=== PATIENT | female | born 1995 | race African-American/Black ===

== ENCOUNTER 2018-10-31 09:26 | Emergency (ER) | payer BC, SELFPAY ==
--- OUTSIDE RECORDS SUMMARY | 2018-10-31 09:28 | XMS REPORT ---
:1995 [facility] Address [address] [place] [address] Care Team Providers Name Role Phone Unavailable Unavailable Unavailable Problems This patient has no known problems. Allergies, Adverse Reactions, Alerts This patient has no known allergies or adverse reactions. Medications This patient has no known medications.
[2018-10-31] MEDS ORDERED: IBUPROFEN 400 MG TAB ONE (11:40)
[2018-10-31] MEDS ORDERED: IBUPROFEN 200 MG TAB PO ONE (11:41)
[2018-10-31 11:52] LABS: Urine Blood NEGATIVE (NEG); Urine Glucose NEGATIVE (NEG); Urine Protein NEGATIVE (NEG); Urine Specific Gravity 1.025 (1.005-1.030)
--- NOTE | 2018-10-31 11:57 | ER ---
Nurse's Notes [facility] Name: Leslye Reardon Age: 23 yrs Sex: Female : 1995 Arrival Date: 10/31/2018 Time: 09:30 Bed 24 Private MD: None, None Diagnosis: Headache;Insomnia Presentation: 10/31 09:43 Presenting complaint: Patient states: migraine since beginning of month, has been under iw a lot of stress, not sleeping well, c/p pain to alexander catholic, pain, also c/o nausea. Transition of care: patient was not received from another setting of care. Onset of symptoms was October 07, 2018. Risk Assessment: Do you want to hurt yourself or someone else? Patient reports no desire to harm self or others. Initial Sepsis Screen: Does the patient meet any 2 criteria? No. Patient's initial sepsis screen is negative. Does the patient have a suspected source of infection? No. Patient's initial sepsis screen is negative. Care prior to arrival: None. 09:43 Method Of Arrival: Ambulatory iw 09:43 Acuity: ELO 3 iw Triage Assessment: 09:55 General: Appears in no apparent distress. Behavior is calm, cooperative. Pain: Pain ls4 currently is 5 out of 10 on a pain scale. Pain began one month Also complains of no other associated symptoms. Neuro: No deficits noted. Cardiovascular: No deficits noted. Respiratory: No deficits noted. Musculoskeletal: No deficits noted. 10:10 Headache History: The patient has had previous headaches and this one is similar to ls4 previous episodes. 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 - Social history:: Smoking status: Patient uses tobacco products, 1 pack every 3 days. - Ebola Screening: : Patient negative for fever greater than or equal to 101.5 degrees Fahrenheit, and additional compatible Ebola Virus Disease symptoms Patient denies exposure to infectious person Patient denies travel to an Ebola-affected area in the 21 days before illness onset No symptoms or risks identified at this time. - Family history:: not pertinent. Screenin:56 Abuse screen: Denies threats or abuse. Denies injuries from another. Nutritional ls4 screening: No deficits noted. Tuberculosis screening: No symptoms or risk factors identified. Fall Risk None identified. Vital Signs: 09:46 BP 112 / 75; Pulse 90; Resp 16 S; Temp 97.4(O); Pulse Ox 99% on R/A; Weight 104.33 kg; iw Height 5 ft. 4 in. (162.56 cm); Pain 5/10; 11:31 BP 110 / 74; Pulse 88; Resp 14; Pulse Ox 98% ; Pain 3/10; ls4 09:46 Body Mass Index 39.48 (104.33 kg, 162.56 cm) iw ED Course: 09:30 Patient arrived in ED. mr 09:31 None, None is Private Physician. mr 09:45 Triage completed. iw 09:46 Arm band placed on. iw 09:54 Donna Mancera, RN is Primary Nurse. ls4 09:57 Patient has correct armband on for positive identification. Bed in low position. Call ls4 light in reach. Side rails up X 1. 10:00 Cooper Davis MD is Attending Physician. comfort 11:56 Oumar Thomas MD is Referral Physician. comfort 12:17 No provider procedures requiring assistance completed. Patient did not have IV access ls4 during this emergency room visit. Administered Medications: 11:25 Drug: Motrin 600 mg Route: PO; ls4 12:16 Follow up: Response: No adverse reaction ls4 Outcome: 11:56 Discharge ordered by . comfort 12:17 Discharged to home ambulatory. ls4 12:17 Condition: stable 12:17 Discharge instructions given to patient, Instructed on discharge instructions, follow up and referral plans. medication usage, Demonstrated understanding of instructions, follow-up care, medications. 12:20 Patient left the ED. ls4 Signatures: Cooper Davis MD MD cha Rivera, Mary mr Williams, Irene, NEY BREWSTER iw Donna Mancera RN RN ls4
--- NOTE | 2018-10-31 11:57 | EDPHYS ---
Physician Documentation [facility] Name: Leslye Reardno Age: 23 yrs Sex: Female : 1995 Arrival Date: 10/31/2018 Time: 09:30 Bed 24 Private MD: None, None ED Physician Cooper Davis HPI: 10/31 11:23 This 23 yrs old Black Female presents to ER via Ambulatory with complaints of Headache. comfort 11:23 The patient complains of pain to the forehead, right episcopal, left episcopal, left temporal comfort area and right temporal area. The patient describes the headache as aching. Onset: The symptoms/episode began/occurred 7 day(s) ago. Associated signs and symptoms: The patient has no apparent associated signs or symptoms. Severity of symptoms: At its worst the pain was mild, moderate, in the emergency department the pain is unchanged. Headache History: The patient has had previous headaches and this one is similar to previous episodes. The symptoms are alleviated by quiet, remaining still, the symptoms are aggravated by lights, movement, stress. The patient has experienced similar episodes in the past, several times. 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 - Social history:: Smoking status: Patient uses tobacco products, 1 pack every 3 days. - Ebola Screening: : Patient negative for fever greater than or equal to 101.5 degrees Fahrenheit, and additional compatible Ebola Virus Disease symptoms Patient denies exposure to infectious person Patient denies travel to an Ebola-affected area in the 21 days before illness onset No symptoms or risks identified at this time. - Family history:: not pertinent. ROS: 11:23 Constitutional: Negative for fever, chills, and weight loss, Eyes: Negative for injury, comfort pain, redness, and discharge, ENT: Negative for injury, pain, and discharge, Neck: Negative for injury, pain, and swelling, Cardiovascular: Negative for chest pain, palpitations, and edema, Respiratory: Negative for shortness of breath, cough, wheezing, and pleuritic chest pain, Abdomen/GI: Negative for abdominal pain, nausea, vomiting, diarrhea, and constipation, Back: Negative for injury and pain, : Negative for injury, bleeding, discharge, and swelling, MS/Extremity: Negative for injury and deformity, Skin: Negative for injury, rash, and discoloration, Psych: Negative for depression, anxiety, suicide ideation, homicidal ideation, and hallucinations, Allergy/Immunology: Negative for hives, rash, and allergies, Endocrine: Negative for neck swelling, polydipsia, polyuria, polyphagia, and marked weight changes, Hematologic/Lymphatic: Negative for swollen nodes, abnormal bleeding, and unusual bruising. 11:23 Neuro: Positive for headache. Exam: 11:23 Constitutional: This is a well developed, well nourished patient who is awake, alert, comfort and in no acute distress. Head/Face: Normocephalic, atraumatic. Eyes: Pupils equal round and reactive to light, extra-ocular motions intact. Lids and lashes normal. Conjunctiva and sclera are non-icteric and not injected. Cornea within normal limits. Periorbital areas with no swelling, redness, or edema. ENT: Nares patent. No nasal discharge, no septal abnormalities noted. Tympanic membranes are normal and external auditory canals are clear. Oropharynx with no redness, swelling, or masses, exudates, or evidence of obstruction, uvula midline. Mucous membranes moist. Neck: Trachea midline, no thyromegaly or masses palpated, and no cervical lymphadenopathy. Supple, full range of motion without nuchal rigidity, or vertebral point tenderness. No Meningismus. Chest/axilla: Normal chest wall appearance and motion. Nontender with no deformity. No lesions are appreciated. Cardiovascular: Regular rate and rhythm with a normal S1 and S2. No gallops, murmurs, or rubs. Normal PMI, no JVD. No pulse deficits. Respiratory: Lungs have equal breath sounds bilaterally, clear to auscultation and percussion. No rales, rhonchi or wheezes noted. No increased work of breathing, no retractions or nasal flaring. Abdomen/GI: Soft, non-tender, with normal bowel sounds. No distension or tympany. No guarding or rebound. No evidence of tenderness throughout. Back: No spinal tenderness. No costovertebral tenderness. Full range of motion. Female : Normal external genitalia. Skin: Warm, dry with normal turgor. Normal color with no rashes, no lesions, and no evidence of cellulitis. MS/ Extremity: Pulses equal, no cyanosis. Neurovascular intact. Full, normal range of motion. Neuro: Awake and alert, GCS 15, oriented to person, place, time, and situation. Cranial nerves II-XII grossly intact. Motor strength 5/5 in all extremities. Sensory grossly intact. Cerebellar exam normal. Normal gait. Psych: Awake, alert, with orientation to person, place and time. Behavior, mood, and affect are within normal limits. 11:56 Neck: ROM/movement: is normal, no acute changes, Meningeal signs: are not present, [facility] Kernig's sign is negative, Brudzinski's sign is negative. Vital Signs: 09:46 BP 112 / 75; Pulse 90; Resp 16 S; Temp 97.4(O); Pulse Ox 99% on R/A; Weight 104.33 kg; iw Height 5 ft. 4 in. (162.56 cm); Pain 5/10; 11:31 BP 110 / 74; Pulse 88; Resp 14; Pulse Ox 98% ; Pain 3/10; ls4 09:46 Body Mass Index 39.48 (104.33 kg, 162.56 cm) iw MDM: 10:00 Patient medically screened. [facility] 11:56 Data reviewed: vital signs, nurses notes, lab test result(s). [facility] 10/31 11:23 Order name: Urine Culture [facility] 10/31 11:49 Order name: Urine Dipstick--Ancillary (enter results); Complete Time: 11:56 10/31 11:23 Order name: Urine Dipstick-Ancillary (obtain specimen); Complete Time: 11:42 [facility] 10/31 11:23 Order name: Urine Test (obtain specimen); Complete Time: 11:42 [facility] 10/31 11:49 Order name: Urine --Ancillary (enter results); Complete Time: 11:56 Administered Medications: 11:25 Drug: Motrin 600 mg Route: PO; ls4 12:16 Follow up: Response: No adverse reaction ls4 Disposition: 10/31/18 11:56 Discharged to Home. Impression: Headache, Insomnia. - Condition is Stable. - Discharge Instructions: General Headache Without Cause, Insomnia, General Headache Without Cause, [id number]. - Prescriptions for Fioricet with Codeine 50- 325-40-30 mg Oral capsule - take 1 capsule by ORAL route every 4 hours as needed not to exceed 6 capsules per 24hrs; 24 capsule. Restoril 7.5 mg Oral Capsule - take 2 capsule by ORAL route At bedtime As needed; 14 capsule. - Medication Reconciliation Form, Thank You Letter, Antibiotic Education, Prescription Opioid Use, Work release form form. - Follow up: Private Physician; When: 2 - 3 days; Reason: Recheck today's complaints, Continuance of care, Re-evaluation by your physician. Follow up: Oumar Thomas; When: 2 - 3 days; Reason: Recheck today's complaints, Continuance of care, Re-evaluation by your physician. - Problem is new. - Symptoms have improved. Signatures: Dispatcher [employer] EDCooper Llanes MD MD cha Williams, Irene, RN RN iw Stewart, Lisa, RN RN ls4 Corrections: (The following items were deleted from the chart) 12:20 11:56 10/31/2018 11:56 Discharged to Home. Impression: Headache; Insomnia. Condition is ls4 Stable. Discharge Instructions: General Headache Without Cause, Insomnia, General Headache Without Cause, [id number]. Prescriptions for Fioricet with Codeine 60-156-08-30 mg Oral capsule - take 1 capsule by ORAL route every 4 hours as needed not to exceed 6 capsules per 24hrs; 24 capsule, Restoril 7.5 mg Oral Capsule - take 2 capsule by ORAL route At bedtime As needed; 14 capsule. and Forms are Medication Reconciliation Form, Thank You Letter, Antibiotic Education, Prescription Opioid Use. Follow up: Private Physician; When: 2 - 3 days; Reason: Recheck today's complaints, Continuance of care, Re-evaluation by your physician. Follow up: Oumar Thomas; When: 2 - 3 days; Reason: Recheck today's complaints, Continuance of care, Re-evaluation by your physician. Problem is new. Symptoms have improved. comfort
== END 2018-10-31 12:20 | disposition home or self-care (01) ==
LOC: ER 09:26
DX: R51 Headache (principal); G47.00 Insomnia, unspecified; Z88.0 Allergy status to penicillin; Z72.0 Tobacco use
CPT/HCPCS: 81003; 81025; 87086; 87088; 99283

== ENCOUNTER 2018-11-21 23:11 | Emergency (ER) | payer BC ==
--- OUTSIDE RECORDS SUMMARY | 2018-11-21 23:14 | XMS REPORT ---
:1995 [facility] Address [address] [place] [address] Care Team Providers Name Role Phone Unavailable Unavailable Unavailable Problems This patient has no known problems. Allergies, Adverse Reactions, Alerts This patient has no known allergies or adverse reactions. Medications This patient has no known medications.
[2018-11-22] MEDS ORDERED: KETOROLAC 30 MG/ML INJ ONE (01:48)
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
--- NOTE | 2018-11-22 08:37 | RAD REPORT ---
EXAM DESCRIPTION: RAD - Foot Left 3 View - 11/22/2018 12:33 am CLINICAL HISTORY: Left Foot pain status post injury FINDINGS: No fracture or dislocation is seen.
== END 2018-11-22 03:02 | disposition home or self-care (01) ==
LOC: ER 23:11
PROC: 2W3RX1Z Immobilization of Left Lower Leg using Splint (ICD-10-PCS; principal; 2018-11-21)
DX: S93.602A Unspecified sprain of left foot, initial encounter (principal); Y04.0XXA Assault by unarmed brawl or fight, initial encounter; Y92.149 Unspecified place in prison as the place of occurrence of the external cause; Z88.0 Allergy status to penicillin; F17.210 Nicotine dependence, cigarettes, uncomplicated
CPT/HCPCS: 96372; 99284

== ENCOUNTER 2019-01-29 10:48 | Emergency (ER) | payer BC, OTHER ==
--- OUTSIDE RECORDS SUMMARY | 2019-01-29 10:50 | XMS REPORT ---
:1995 [facility] [address] [place] [address] Care Team Providers Name Role Phone Unavailable Unavailable Unavailable Problems This patient has no known problems. Allergies, Adverse Reactions, Alerts This patient has no known allergies or adverse reactions. Medications This patient has no known medications.
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
[2019-01-29] MEDS ORDERED: HYDROCODONE/APAP 7.5/325 MG TAB ONE (12:19)
--- NOTE | 2019-01-29 13:31 | RAD REPORT ---
EXAM DESCRIPTION: RAD - Ankle Left 3 View - 01/29/2019 11:39 am CLINICAL HISTORY: Trip and fall, ankle pain COMPARISON: None. FINDINGS: No fracture, dislocation or periosteal reaction. No joint effusion seen. No joint space na rrowing. No soft tissue abnormality. IMPRESSION: Negative left ankle for fracture or other acute finding.
== END 2019-01-29 12:19 | disposition home or self-care (01) ==
LOC: ER 10:48
DX: S93.402A Sprain of unspecified ligament of left ankle, initial encounter (principal); S80.01XA Contusion of right knee, initial encounter; W19.XXXA Unspecified fall, initial encounter; Y93.89 Activity, other specified; Y92.9 Unspecified place or not applicable; Z88.0 Allergy status to penicillin; F17.210 Nicotine dependence, cigarettes, uncomplicated
CPT/HCPCS: 99283

== ENCOUNTER 2019-02-28 20:44 | Emergency (ER) | payer BC ==
--- OUTSIDE RECORDS SUMMARY | 2019-02-28 20:46 | XMS REPORT ---
:1995 [facility] Address [address] [place] [address] Care Team Providers Name Role Phone Unavailable Unavailable Unavailable Problems This patient has no known problems. Allergies, Adverse Reactions, Alerts This patient has no known allergies or adverse reactions. Medications This patient has no known medications.
[2019-02-28 23:05] LABS: Urine Blood NEGATIVE (NEG); Urine Glucose NEGATIVE (NEG); Urine Protein 1+ (NEG); Urine pH 7.5 (5.0-7.0)
[2019-03-01 00:02] LABS: Urine Bacteria LOADED /HPF (<20); Urine Culture Reflex Order REFLEXED; Urine RBC NONE SEEN /HPF (NONE SEEN)
--- NOTE | 2019-03-01 01:05 | ER ---
Nurse's Notes [facility] Name: Leslye Reardon Age: 23 yrs Sex: Female : 1995 Arrival Date: 02/28/2019 Time: 20:48 Bed 6 Private MD: Diagnosis: Constipation;Urinary tract infection, site not specified Presentation: 02/28 20:55 Presenting complaint: Patient states: LLQ pain for 2 days. Transition of care: patient aj was not received from another setting of care. Onset of symptoms was February 26, 2019. Risk Assessment: Do you want to hurt yourself or someone else? Patient reports no desire to harm self or others. Initial Sepsis Screen: Does the patient meet any 2 criteria? No. Patient's initial sepsis screen is negative. Does the patient have a suspected source of infection? No. Patient's initial sepsis screen is negative. Care prior to arrival: None. 20:55 Method Of Arrival: Ambulatory aj 20:55 Acuity: ELO 3 aj Triage Assessment: 20:56 General: Appears in no apparent distress. comfortable, Behavior is calm, cooperative, aj appropriate for age. Pain: Complains of pain in left inguinal area. Neuro: Level of Consciousness is awake, alert, obeys commands, Oriented to person, place, time, situation, Appropriate for age. Respiratory: Airway is patent Respiratory effort is even, unlabored, Respiratory pattern is regular, symmetrical. : Reports pain in left lower quadrant(s). Derm: Skin is intact, is healthy with good turgor, Skin is pink, warm \T\ dry. normal. 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 - Social history:: Smoking status: Patient/guardian denies using tobacco. - Ebola Screening: : Patient negative for fever greater than or equal to 101.5 degrees Fahrenheit, and additional compatible Ebola Virus Disease symptoms Patient denies exposure to infectious person Patient denies travel to an Ebola-affected area in the 21 days before illness onset No symptoms or risks identified at this time. Screenin:57 Abuse screen: Denies threats or abuse. Denies injuries from another. Nutritional lp1 screening: No deficits noted. Tuberculosis screening: No symptoms or risk factors identified. Fall Risk None identified. Assessment: 22:30 General: Appears in no apparent distress. Behavior is calm, cooperative. Pain: lp1 Complains of pain in left lower quadrant. Neuro: Level of Consciousness is awake, alert, obeys commands. Cardiovascular: Patient's skin is warm and dry. Respiratory: Respiratory effort is even, unlabored. GI: Abdomen is non-distended, Reports constipation, for 3 days, hx of constipation, states taking stool softeners. : Denies burning with urination. EENT: No signs and/or symptoms were reported regarding the EENT system. Derm: Skin is intact, Skin is dry, Skin is normal. Musculoskeletal: Circulation, motion, and sensation intact. 23:30 Reassessment: Patient appears in no apparent distress at this time. No changes from lp1 previously documented assessment. Patient and/or family updated on plan of care and expected duration. Pain level reassessed. Waiting for imaging results. Vital Signs: 20:56 BP 126 / 55; Pulse 98; Resp 18; Temp 97.2; Pulse Ox 100% on R/A; Weight 107.05 kg; aj Height 5 ft. 4 in. (162.56 cm); 03/01 00:20 BP 130 / 73; Pulse 65; Resp 16; Pulse Ox 98% on R/A; lp1 02/28 20:56 Body Mass Index 40.51 (107.05 kg, 162.56 cm) aj ED Course: 02/28 20:48 Patient arrived in ED. ag3 20:56 Triage completed. aj 20:56 Arm band placed on left wrist. Patient placed in waiting room, Patient notified of wait aj time. 21:51 Denton Bethea MD is Attending Physician. tw4 22:19 Joi Groves, RN is Primary Nurse. lp1 22:57 Patient has correct armband on for positive identification. Placed in gown. lp1 03/01 00:20 No provider procedures requiring assistance completed. Patient did not have IV access lp1 during this emergency room visit. 00:27 X-ray completed. Patient tolerated procedure well. kw 00:36 Abdomen 1 View (KUB) XRAY In Process Unspecified. EDMS Administered Medications: 01:01 Drug: Lactulose 20 grams Volume: 30 ml; Route: PO; lp1 01:11 Follow up: Response: Medication administered at discharge. lp1 Outcome: 01:03 Discharge ordered by . tw4 01:11 Discharged to home ambulatory. lp1 01:11 Condition: good 01:11 Discharge instructions given to patient, Instructed on discharge instructions, follow up and referral plans. medication usage, Demonstrated understanding of instructions, follow-up care, medications. 01:33 Prescriptions given X 2. lp1 01:33 Patient left the ED. lp1 Signatures: Dispatcher [employer] EDChaparrita Desir RN Megan Ferreira Laura, RN RN lp1 Denton Bethea MD MD tw4 Negar Yeung ag3 Corrections: (The following items were deleted from the chart) 01:33 01:11 Discharge instructions given to patient, Instructed on discharge instructions, lp1 follow up and referral plans. medication usage, Demonstrated understanding of instructions, follow-up care, medications, Prescriptions given X 1, lp1
--- NOTE | 2019-03-01 01:05 | EDPHYS ---
Physician Documentation [facility] Cosmo Name: Leslye Reardon Age: 23 yrs Sex: Female : 1995 Arrival Date: 02/28/2019 Time: 20:48 Bed 6 Private MD: ED Physician Denton Bethea HPI: 03/01 05:30 This 23 yrs old Black Female presents to ER via Ambulatory with complaints of Abdominal tw4 Pain. 05:30 The patient presents with pain that is chronic. The symptoms are located in the low tw4 back. Onset: The symptoms/episode began/occurred 3 day(s) ago. The pain does not radiate. Associated signs and symptoms: The patient has no apparent associated signs or symptoms. Severity of symptoms: At their worst the symptoms were mild, in the emergency department the symptoms are unchanged. 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 - Social history:: Smoking status: Patient/guardian denies using tobacco. - Ebola Screening: : Patient negative for fever greater than or equal to 101.5 degrees Fahrenheit, and additional compatible Ebola Virus Disease symptoms Patient denies exposure to infectious person Patient denies travel to an Ebola-affected area in the 21 days before illness onset No symptoms or risks identified at this time. ROS: 03/01 05:30 Constitutional: Negative for fever, chills, and weight loss, Eyes: Negative for injury, tw4 pain, redness, and discharge, Cardiovascular: Negative for chest pain, palpitations, and edema, Respiratory: Negative for shortness of breath, cough, wheezing, and pleuritic chest pain. Skin: Negative for injury, rash, and discoloration, Neuro: Negative for headache, weakness, numbness, tingling, and seizure. Abdomen/GI: Positive for abdominal pain, constipation, abdominal cramps, Negative for nausea and vomiting, nausea, vomiting, and diarrhea, nausea, anorexia, dysphagia, hematemesis, black/tarry stool, rectal pain, rectal bleeding, bowel incontinence. Exam: 05:30 Constitutional: This is a well developed, well nourished patient who is awake, alert, tw4 and in no acute distress. Head/Face: Normocephalic, atraumatic. Chest/axilla: Normal chest wall appearance and motion. Nontender with no deformity. No lesions are appreciated. Cardiovascular: Regular rate and rhythm with a normal S1 and S2. No gallops, murmurs, or rubs. Normal PMI, no JVD. No pulse deficits. Respiratory: Lungs have equal breath sounds bilaterally, clear to auscultation and percussion. No rales, rhonchi or wheezes noted. No increased work of breathing, no retractions or nasal flaring. MS/ Extremity: Pulses equal, no cyanosis. Neurovascular intact. Full, normal range of motion. Neuro: Awake and alert, GCS 15, oriented to person, place, time, and situation. Cranial nerves II-XII grossly intact. Motor strength 5/5 in all extremities. Sensory grossly intact. Cerebellar exam normal. Normal gait. Vital Signs: 02/28 20:56 BP 126 / 55; Pulse 98; Resp 18; Temp 97.2; Pulse Ox 100% on R/A; Weight 107.05 kg; aj Height 5 ft. 4 in. (162.56 cm); 03/01 00:20 BP 130 / 73; Pulse 65; Resp 16; Pulse Ox 98% on R/A; lp1 02/28 20:56 Body Mass Index 40.51 (107.05 kg, 162.56 cm) aj MDM: 02/28 21:51 Patient medically screened. [facility] 03/01 05:30 Data reviewed: vital signs, nurses notes. Counseling: I had a detailed discussion with [facility] the patient and/or guardian regarding: the historical points, exam findings, and any diagnostic results supporting the discharge/admit diagnosis. Special discussion: I discussed with the patient/guardian in detail that at this point there is no indication for admission to the hospital. It is understood, however, that if the symptoms persist or worsen the patient needs to return immediately for re-evaluation. 02/28 22:57 Order name: Urine Microscopic Only md5 02/28 23:01 Order name: Urine Dipstick--Ancillary (enter results) [facility] 02/28 22:43 Order name: Abdomen 1 View (KUB) XRAY 4 02/28 23:01 Order name: Urine --Ancillary (enter results) [facility] 03/01 00:04 Order name: Urine Culture EDMS Administered Medications: 01:01 Drug: Lactulose 20 grams Volume: 30 ml; Route: PO; lp1 01:11 Follow up: Response: Medication administered at discharge. lp1 Disposition: 03/01/19 01:03 Discharged to Home. Impression: Constipation, Urinary tract infection, site not specified. - Condition is Stable. - Discharge Instructions: Constipation, Adult. - Prescriptions for Lactulose 10 gram/15 mL Oral Solution - take 30 milliliter by ORAL route once daily; 300 milliliter. Macrodantin 100 mg Oral Capsule - take 1 capsule by ORAL route every 6 hours for 10 days; 40 capsule. - Work release form, Medication Reconciliation Form, Thank You Letter, Antibiotic Education, Prescription Opioid Use form. - Follow up: Private Physician; When: Upon discharge from the Emergency Department; Reason: If symptoms return, Recheck today's complaints, Continuance of care. - Problem is new. - Symptoms have improved. Signatures: Dispatcher [employer] EDChaparrita Desir RN RN aj Pena, Laura, RN RN lp1 Denton Bethea MD MD tw4 Corrections: (The following items were deleted from the chart) 01: 01:03 03/01/2019 01:03 Discharged to Home. Impression: Constipation. Condition is tw4 Stable. Forms are Medication Reconciliation Form, Thank You Letter, Antibiotic Education, Prescription Opioid Use. Follow up: Private Physician; When: Upon discharge from the Emergency Department; Reason: If symptoms return, Recheck today's complaints, Continuance of care. Problem is new. Symptoms have improved. tw4 01:33 01:31 03/01/2019 01:03 Discharged to Home. Impression: Constipation; Urinary tract lp1 infection, site not specified. Condition is Stable. Discharge Instructions: Constipation, Adult. Prescriptions for Lactulose 10 gram/15 mL Oral Solution - take 30 milliliter by ORAL route once daily; 300 milliliter. and Forms are Medication Reconciliation Form, Thank You Letter, Antibiotic Education, Prescription Opioid Use, Work release form. Follow up: Private Physician; When: Upon discharge from the Emergency Department; Reason: If symptoms return, Recheck today's complaints, Continuance of care. Problem is new. Symptoms have improved. tw4
[2019-03-01] MEDS ORDERED: LACTULOSE 20 GM/30 ML UCUP ONE (01:15)
--- NOTE | 2019-03-01 08:33 | RAD REPORT ---
EXAM DESCRIPTION: RAD - Abdomen 1 View (KUB) - 03/01/2019 12:35 am CLINICAL HISTORY: Persistent left lower quadrant pain x2 days COMPARISON: None. FINDINGS: Bowel gas pattern is non-specific. No obstruction, free air or pneumatosis. No renal, ure teral or bladder calculi seen. No abnormal quantity of stool in the colon. No significant bony findings IMPRESSION: Negative KUB examination.
== END 2019-03-01 01:33 | disposition home or self-care (01) ==
LOC: ER 20:44
DX: K59.00 Constipation, unspecified (principal); N39.0 Urinary tract infection, site not specified; Z88.0 Allergy status to penicillin
CPT/HCPCS: 74018; 81003; 81015; 81025; 87077; 87086; 87088; 87186; 99283

== ENCOUNTER 2019-04-25 20:19 | Emergency (ER) | payer BC ==
--- OUTSIDE RECORDS SUMMARY | 2019-04-25 20:22 | XMS REPORT ---
:1995 [facility] Address [address] [place] [address] Care Team Providers Name Role Phone Unavailable Unavailable Unavailable Problems This patient has no known problems. Allergies, Adverse Reactions, Alerts This patient has no known allergies or adverse reactions. Medications This patient has no known medications.
[2019-04-25] MEDS ORDERED: ALBUTEROL 2.5 MG/3 ML NEB SOL ONE (20:52)
[2019-04-25] MEDS ORDERED: BENZONATATE 100 MG CAP PO ONE (20:52)
--- NOTE | 2019-04-25 21:19 | ER ---
Nurse's Notes [facility] Cos[facility] Name: Leslye Reardon Age: 23 yrs Sex: Female : 1995 Arrival Date: 04/25/2019 Time: 20:23 Bed 13 Private MD: Diagnosis: Acute sinusitis Presentation: 04/25 20:25 Presenting complaint: Patient states: I have been having facial pain, dry cough and la1 throat pain when I cough or yell for three days. Transition of care: patient was not received from another setting of care. Onset of symptoms was April 25, 2019. Risk Assessment: Do you want to hurt yourself or someone else? Patient reports no desire to harm self or others. Initial Sepsis Screen: Does the patient meet any 2 criteria? No. Patient's initial sepsis screen is negative. Does the patient have a suspected source of infection? No. Patient's initial sepsis screen is negative. Care prior to arrival: None. 20:25 Method Of Arrival: Ambulatory la1 20:25 Acuity: ELO 4 la1 Historical: - Allergies: 20:26 PENICILLINS; la1 - Home Meds: 20:26 None [Active]; la1 - PMHx: 20:26 None; la1 - PSHx: 20:26 None; la1 - Immunization history:: Adult Immunizations up to date. - Social history:: Smoking status: Patient uses tobacco products, smokes one-half pack cigarettes per day. - Ebola Screening: : No symptoms or risks identified at this time. Screenin:50 Abuse screen: Denies threats or abuse. Denies injuries from another. Nutritional aa1 screening: No deficits noted. Tuberculosis screening: No symptoms or risk factors identified. Fall Risk None identified. Assessment: 20:50 General: Appears in no apparent distress. comfortable, Behavior is calm, cooperative, aa1 appropriate for age. Pain: Complains of pain in face Quality of pain is described as pressure, Is continuous. Neuro: Level of Consciousness is awake, alert, obeys commands, Oriented to person, place, time, situation, Moves all extremities. Full function Gait is steady, Speech is normal. Respiratory: Reports cough that is dry, Airway is patent Respiratory effort is even, unlabored, Respiratory pattern is regular, symmetrical, Breath sounds are clear bilaterally. GI: No signs and/or symptoms were reported involving the gastrointestinal system. : No signs and/or symptoms were reported regarding the genitourinary system. EENT: Throat is clear. Derm: Skin is intact, is healthy with good turgor, Skin is pink, warm \T\ dry. Musculoskeletal: Circulation, motion, and sensation intact. Capillary refill < 3 seconds. 21:22 Reassessment: Patient appears in no apparent distress at this time. Patient is alert, aa1 oriented x 3, equal unlabored respirations, skin warm/dry/pink. Discussed d/c \T\ f/u instructions with pt; denies questions or concerns at this time. Ambulatory to lobby with steady gait Patient states feeling better. Patient states symptoms have improved. Vital Signs: 20:26 BP 133 / 70; Pulse 86; Resp 16; Temp 97.7; Pulse Ox 100% on R/A; Weight 99.79 kg; la1 Height 5 ft. 3 in. (160.02 cm); 21:22 BP 120 / 85; Pulse 93; Resp 16; Temp 97.8; Pulse Ox 99% on R/A; Pain 0/10; aa1 20:26 Body Mass Index 38.97 (99.79 kg, 160.02 cm) la1 ED Course: 20:23 Patient arrived in ED. cf2 20:24 Adwoa Fall FNP-C is [facility]. kb 20:24 Prashanth Natarajan MD is Attending Physician. kb 20:26 Triage completed. la1 20:26 Arm band placed on right wrist. la1 20:50 Patient has correct armband on for positive identification. Bed in low position. Call aa1 light in reach. Pulse ox on. NIBP on. 20:50 No provider procedures requiring assistance completed. Patient did not have IV access aa1 during this emergency room visit. 20:54 Brianda Hernandez, NEY is Primary Nurse. aa1 Administered Medications: 20:54 Drug: Albuterol 2.5 mg Route: Inhalation; aa1 20:55 Drug: Tessalon Perle 100 mg Route: PO; aa1 21:20 Follow up: Response: No adverse reaction; Marked relief of symptoms aa1 Outcome: 21:18 Discharge ordered by . kb 21:22 Discharged to home ambulatory. aa1 21:22 Condition: good 21:22 Discharge instructions given to patient, Instructed on discharge instructions, follow up and referral plans. medication usage, Demonstrated understanding of instructions, follow-up care, medications, Prescriptions given X 1. 21:23 Patient left the ED. aa1 Signatures: Adwoa Fall, RODRÍGUEZ CHAVIRA-Brianda Cordoba RN RN aa1 Reynaldo Gamez RN RN la1 German Rhodes 2
--- NOTE | 2019-04-25 21:19 | EDPHYS ---
Physician Documentation [facility] Name: Leslye Reardon Age: 23 yrs Sex: Female : 1995 Arrival Date: 04/25/2019 Time: 20:23 Bed 13 Private MD: ED Physician Prashanth Natarajan HPI: 04/25 20:54 This 23 yrs old Black Female presents to ER via Ambulatory with complaints of Sore kb Throat. 20:54 The patient or guardian reports cough, that is intermittent, described as moderate, kb with no sputum. Onset: The symptoms/episode began/occurred 3 day(s) ago. Severity of symptoms: At their worst the symptoms were mild, moderate, in the emergency department the symptoms are unchanged. Modifying factors: The symptoms are alleviated by nothing, the symptoms are aggravated by nothing. Associated signs and symptoms: Pertinent positives: rhinorrhea, sore throat, Pertinent negatives: chest pain, diarrhea, ear ache, fever, nausea, vomiting. The patient has not experienced similar symptoms in the past. The patient has not recently seen a physician. Historical: - Allergies: 20:26 PENICILLINS; la1 - Home Meds: 20:26 None [Active]; la1 - PMHx: 20:26 None; la1 - PSHx: 20:26 None; la1 - Immunization history:: Adult Immunizations up to date. - Social history:: Smoking status: Patient uses tobacco products, smokes one-half pack cigarettes per day. - Ebola Screening: : No symptoms or risks identified at this time. ROS: 20:53 Constitutional: Negative for fever, chills, and weight loss, Neck: Negative for injury, kb pain, and swelling, Cardiovascular: Negative for chest pain, palpitations, and edema, Abdomen/GI: Negative for abdominal pain, nausea, vomiting, diarrhea, and constipation, Back: Negative for injury and pain, MS/Extremity: Negative for injury and deformity, Skin: Negative for injury, rash, and discoloration, Neuro: Negative for headache, weakness, numbness, tingling, and seizure. 20:53 ENT: Positive for rhinorrhea, sinus congestion, sinus pain, sore throat. 20:53 Respiratory: Positive for cough, Negative for dyspnea on exertion, hemoptysis, orthopnea, pleurisy, shortness of breath, sputum production, wheezing. Exam: 20:51 Constitutional: This is a well developed, well nourished patient who is awake, alert, kb and in no acute distress. Head/Face: Normocephalic, atraumatic. ENT: Nares patent. No nasal discharge, no septal abnormalities noted. Tympanic membranes are normal and external auditory canals are clear. Oropharynx with no redness, swelling, or masses, exudates, or evidence of obstruction, uvula midline. Mucous membranes moist. Neck: Trachea midline, no thyromegaly or masses palpated, and no cervical lymphadenopathy. Supple, full range of motion without nuchal rigidity, or vertebral point tenderness. No Meningismus. Chest/axilla: Normal chest wall appearance and motion. Nontender with no deformity. No lesions are appreciated. Cardiovascular: Regular rate and rhythm with a normal S1 and S2. No gallops, murmurs, or rubs. Normal PMI, no JVD. No pulse deficits. Respiratory: Lungs have equal breath sounds bilaterally, clear to auscultation and percussion. No rales, rhonchi or wheezes noted. No increased work of breathing, no retractions or nasal flaring. Abdomen/GI: Soft, non-tender, with normal bowel sounds. No distension or tympany. No guarding or rebound. No evidence of tenderness throughout. Skin: Warm, dry with normal turgor. Normal color with no rashes, no lesions, and no evidence of cellulitis. MS/ Extremity: Pulses equal, no cyanosis. Neurovascular intact. Full, normal range of motion. Neuro: Awake and alert, GCS 15, oriented to person, place, time, and situation. Cranial nerves II-XII grossly intact. Motor strength 5/5 in all extremities. Sensory grossly intact. Cerebellar exam normal. Normal gait. Vital Signs: 20:26 BP 133 / 70; Pulse 86; Resp 16; Temp 97.7; Pulse Ox 100% on R/A; Weight 99.79 kg; la1 Height 5 ft. 3 in. (160.02 cm); 21:22 BP 120 / 85; Pulse 93; Resp 16; Temp 97.8; Pulse Ox 99% on R/A; Pain 0/10; aa1 20:26 Body Mass Index 38.97 (99.79 kg, 160.02 cm) la1 MDM: 20:26 Patient medically screened. kb 20:51 Data reviewed: vital signs, nurses notes. Data interpreted: Pulse oximetry: on room air kb is 100 %. Interpretation: normal. 21:16 Counseling: I had a detailed discussion with the patient and/or guardian regarding: the kb historical points, exam findings, and any diagnostic results supporting the discharge/admit diagnosis, lab results, the need for outpatient follow up, a family practitioner, to return to the emergency department if symptoms worsen or persist or if there are any questions or concerns that arise at home. 04/25 20:48 Order name: Strep; Complete Time: 21:16 kb 04/25 21:18 Order name: Throat Culture EDMS Administered Medications: 20:54 Drug: Albuterol 2.5 mg Route: Inhalation; aa1 20:55 Drug: Tessalon Perle 100 mg Route: PO; aa1 21:20 Follow up: Response: No adverse reaction; Marked relief of symptoms aa1 Disposition: 04/26 06:03 Co-signature as Attending Physician, Prashanth Natarajan MD. Disposition: 04/25/19 21:18 Discharged to Home. Impression: Acute sinusitis. - Condition is Stable. - Discharge Instructions: Sinusitis, Adult, [id number]. - Prescriptions for Tessalon Perles 100 mg Oral Capsule - take 1 capsule by ORAL route every 8 hours As needed; 15 capsule. - Medication Reconciliation Form, Thank You Letter, Antibiotic Education, Prescription Opioid Use form. - Follow up: Emergency Department; When: As needed; Reason: Worsening of condition. Follow up: Private Physician; When: 2 - 3 days; Reason: Recheck today's complaints, Continuance of care, Re-evaluation by your physician. Signatures: Dispatcher [employer] EDNV Adwoa Fall, FAN-C FROZEN MEAT CUTTER-Brianda Cordoba RN RN aa1 Reynaldo Gamez RN RN la1 Prashanth Natarajan MD MD Corrections: (The following items were deleted from the chart) 04/25 21:23 21:18 04/25/2019 21:18 Discharged to Home. Impression: Acute sinusitis. Condition is aa1 Stable. Forms are Medication Reconciliation Form, Thank You Letter, Antibiotic Education, Prescription Opioid Use. Follow up: Emergency Department; When: As needed; Reason: Worsening of condition. Follow up: Private Physician; When: 2 - 3 days; Reason: Recheck today's complaints, Continuance of care, Re-evaluation by your physician. kb
[2019-04-25 21:49] VITALS: BP 133/70; TEMP 97.7; O2SAT 100
== END 2019-04-25 21:23 | disposition home or self-care (01) ==
LOC: ER 20:19
DX: J01.90 Acute sinusitis, unspecified (principal); F17.210 Nicotine dependence, cigarettes, uncomplicated; Z88.0 Allergy status to penicillin
CPT/HCPCS: 87070; 87081; 99284

== ENCOUNTER 2023-07-03 16:58 | Emergency (ER) | payer BC ==
--- OUTSIDE RECORDS SUMMARY | 2023-07-03 17:02 | XMS REPORT | Continuity of Care Document ---
:1995 Author Organization [facility] t Address [address] [place] [address] Care Team Providers Name Role Phone Marimar Martinez Primary Care Physician [phone] Christen Blackburn MA Attending Clinician Unavailable LUKE VERA I Attending Clinician Unavailable ALISA YONUG Attending Clinician Unavailable Hector RAYA, Alisa Abrams Attending Clinician Marimar Martinez Attending Clinician [phone] MARIMAR MENDOZA Attending Clinician Unavailable Doctor Unassigned, [place] Attending Clinician Unavailable Jace Soriano Attending Clinician BRAD WALLACE Attending Clinician Unavailable Dayanara Rhoades MD Attending Clinician Lasha Cosby MD Attending Clinician [phone] MONICA JEREZ Attending Clinician Unavailable Monica Jerez MD Attending Clinician [phone] JACE DARNELL Attending Clinician Unavailable 1, [facility] Attending Clinician Unavailable GERARDO MEJIA Attending Clinician Unavailable Lab, [facility] Attending Clinician Unavailable Gerardo Mejia MD Attending Clinician [phone] NIESHA JACOBSON Attending Clinician Unavailable Niesha Jacobson MD Attending Clinician SHWETA WADDELL Attending Clinician Unavailable MONICA JEREZ Admitting Clinician Unavailable BRAD WALLACE Admitting Clinician Unavailable Monica Jerez MD Admitting Clinician [phone] Payers Payer Name Policy Type Policy Number Effective Date Expiration Date S alok [facility] [id number] 2021 00:00:[address] [facility] [id number] 2021 00:00:00 [facility] [id number] 2022 [place] ([facility] 00:00:00 CAPITATED) MEDICAID PENDING PENDING 2021 00:00:00 Problems Condition Condition Condition Status Onset Resolution Last Treating Co mments Source Name Details Category Date Date Treatment Clinician Date Severe Severe Disease Active Univers pre-eclamp pre-eclamp 7-18 it y of dim[place] 00 Med[place] Branch Anemia of Anemia of Disease Active Uni vers mother in mother in 7-08 [place] , , [place] ante[place] antepartum 00 Me dical Branch Elevated Elevated Disease Active Unive rs blood blood 6-15 ity of pressure pressure 00:00: [place] reading reading 00 Medical without without Branch diagnosis diagnosis of of hypertensi hypertensi on on Recurrent Recurrent Disease Active Uni vers UTI UTI 3-14 ity of (urinary (urinary 00:00: [place] tract tract 00 Medical infection) infection) Br anch complicati complicati ng ng 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 Papanicola Papanicola HPV neg, ou smear ou smear will need of cervix of cervix repeat pap in 3 years per ASCCP guideline s Obesity Obesity Disease Active 2020-08 Univers (BMI (BMI 2-16 ity of 30-39.9) 30-39.9) 00:00: [place] 00 [facility] Allergies, Adverse Reactions, Alerts Allergy Allergy Status Severity Reaction(s) Onset Inactive Treating Comm ents Source Name Type Date Date Clinician Penicill Propensi Active Itching Unive rs ins ty to 4-29 ity of adverse 00:00: [place] reaction 00 Medical s Branch PENICILL Drug Active ITCHING Univers INS Class 4-29 ity of 00:00: [place] 00 Medical Branch Penicill Drug Active Rash Libia ins Allergy 6-10 Seybold 00:00: - 00 Externa l Social History Social Habit Start Date Stop Date Quantity Comments Source History of tobacco Cigarette Smoker Libia Mcintosh - use External Gender identity [facility]it y [facility] Sexual orientation [facility] Alcohol intake 2022-12-02 2022-12-02 Current drinker Maryuri melvin Seybold - 00:00:00 00:00:00 of alcohol External (finding) Exposure to 2022-07-19 2022-07-29 Not sure [facility] SARS-CoV-2 (event) 00:00:00 14:56:00 [facility] History of Social 2022-07-29 2022-07-29 Univers ity of function 00:00:00 00:00:00 [facility] Tobacco use and 2019-10-19 2019-10-19 Smokeless Libia Se ybold - exposure 00:00:00 00:00:00 tobacco non-user External Tobacco Comment 2019-10-19 2019-10-19 1 pack/wk. Libia Se ybold - 00:00:00 00:00:00 External Sex Ass[birth year] At [birth year] Libia Se ybold - 00:00:00 00:00:00 External Smoking Status Start Date Stop Date Source Never smoked tobacco [facility] Smokes tobacco daily 2019-10-19 00:00:00 Lib[place] Mcintosh - External Medications Ordered Filled Start Stop Current Ordering Indication Dosage Frequency Signature Comments Components Source Medication Medication Date Date Medication? Clinician (SIG) Name Name Brissa 2022- No [id number] Take 2 Libia olmedo 250 MG 4-26 05-02 tablets by Seyb old oral Tablet 00:00: 04:59 mouth on - 00 :00 day 1 then Externa 1 tablet l by mouth daily for 4 days thereafter . levonorgest 2021-08 Yes [id number] 1{tbl} Take 1 Univers rel-ethinyl 2-21 tablet by ity of estradiol 00:00: mouth [place] (LUTERA, 00 every Medical ,) 0.1-20 morning. Bran ch mg-mcg per tablet levonorgest 2021-08 Yes [id number] 1{tbl} Take 1 Univers rel-ethinyl 2-21 tablet by ity of estradiol 00:00: mouth [place] (LUTERA, 00 every Medical ,) 0.1-20 morning. Bran ch mg-mcg per tablet levonorgest 2021-08 Yes [id number] 1{tbl} Take 1 Univers rel-ethinyl 2-21 tablet by ity of estradiol 00:00: mouth [place] (LUTERA, 00 every Medical ,) 0.1-20 morning. Bran ch mg-mcg per tablet Levonorgest 2021-08 Yes 1{tbl} Take 1 [place] rel-Ethinyl 2-21 tablet by Sey bold Estrad 00:00: mouth - 0.1-20 00 every Externa MG-MCG oral morning l Tablet [facility], 2021-08 Yes [id number] TAKE 1 Univers 0.1-20 1-21 TABLET BY ity of mg-mcg per 00:00: MOUTH [place] tablet 00 EVERY DAY Medical IN THE [facility] LUTERA, 2021-08 Yes [id number] TAKE 1 Univers 0.1-20 1-21 TABLET BY ity of mg-mcg per 00:00: MOUTH [place] tablet 00 EVERY DAY Medical IN THE [facility] LUTERA, 2021-08- No [id number] TAKE 1 Univers 0.1-20 1-21 12-21 TABLET BY ity of mg-mcg per 00:00: 00:00 MOUTH [place] tablet 00 :00 EVERY DAY Medical IN THE [facility] LUTERA, 2021-08- No [id number] TAKE 1 Univers 0.1-20 1-21 12-21 TABLET BY ity of mg-mcg per 00:00: 00:00 MOUTH [place] tablet 00 :00 EVERY DAY Medical IN THE [facility] LUTERA, 2021-08 Yes [id number] TAKE 1 Univers 0.1-20 0-24 TABLET BY ity of mg-mcg per 00:00: MOUTH [place] tablet 00 EVERY DAY Medical IN THE [place] MORNING LUTERA, 2021-08- No [id number] TAKE 1 Univers 0.1-20 0-24 11-21 TABLET BY ity of mg-mcg per 00:00: 00:00 MOUTH [place] tablet 00 :00 EVERY DAY Medical IN THE [place] MORNING levoFLOXaci 2021- No [id number] 250mg Take 1 Univers n 250 mg 04-10 09-06 tablet by ity o f tablet 00:00: 04:59 mouth [place] 00 :00 every 24 Medical ([facility]) hours for 3 days. levonorgest Yes [id number] 1{tbl} Take 1 Univers rel-ethinyl 8-30 tablet by ity of estradiol 00:00: [place] (SRONYX[place] 00 the Medical 0.1-20 morning. Branch mg-mcg per tablet levonorgest Yes [id number] 1{tbl} Take 1 Univers rel-ethinyl 8-30 tablet by ity of estradiol 00:00: [place] (SRONYX[place] 00 the Medical 0.1-20 morning. Branch mg-mcg per tablet levonorgest 2021- No [id number] 1{tbl} Take 1 Univers rel-ethinyl 8-30 10-24 tablet by it y of estradiol 00:00: 00:00 mouth in [place] (SRONYX) 00 :00 the Medical 0.1-20 morning. Branch mg-mcg per tablet Yes [id number] 1{tbl} Take 1 Univers [id number] 7-18 tablet by ity of fum-folic 00:00: mouth [place] () 00 the Medical 27 mg iron- morning. Bran ch 1 mg folic tablet docusate Yes [id number] 200mg Take 2 U nivers 100 mg 7-18 capsules ity of capsule 00:00: by mouth [place] 00 once daily Medical as needed [place] for Constipati on. ferrous Yes [id number] 325mg Take 1 Un akhil sulfate 325 7-18 tablet by ity of mg (65 mg 00:00: mouth [place] iron) 00 the Medical tablet morning Branch and 1 tablet in the evening. ibuprofen 2021-0 Yes [id number] 600mg Take 1 Univers 600 mg 7-18 tablet by ity of tablet 00:00: mouth [place] 00 every 6 Medical (six) Branch hours as needed (Pain). Take with food or milk. 2021-0 Yes [id number] 1{tbl} Take 1 Univers [id number] 7-18 tablet by ity of fum-folic 00:00: mouth [place] () 00 the Medical 27 mg iron- morning. Bran ch 1 mg folic tablet docusate 0 Yes [id number] 200mg Take 2 U nivers 100 mg 7-18 capsules ity of capsule 00:00: by mouth [place] 00 once daily Medical as needed Branch for Constipati on. ferrous 2021-0 Yes [id number] 325mg Take 1 Un akhil sulfate 325 7-18 tablet by ity of mg (65 mg 00:00: mouth [place] iron) 00 the Medical tablet morning Branch and 1 tablet in the evening. ibuprofen 2021-0 Yes [id number] 600mg Take 1 Univers 600 mg 7-18 tablet by ity of tablet 00:00: mouth [place] 00 every 6 Medical (six) Branch hours as needed (Pain). Take with food or milk. 2021-0 Yes [id number] 1{tbl} Take 1 Univers [id number] 7-18 tablet by ity of fum-folic 00:00: mouth [place] () 00 the Medical 27 mg iron- morning. Bran ch 1 mg folic tablet docusate 0 Yes [id number] 200mg Take 2 U nivers 100 mg 7-18 capsules ity of capsule 00:00: by mouth [place] 00 once daily Medical as needed Branch for Constipati on. ferrous 2021-0 Yes [id number] 325mg Take 1 Un akhil sulfate 325 7-18 tablet by ity of mg (65 mg 00:00: mouth [place] iron) 00 the Medical tablet morning Branch and 1 tablet in the evening. ibuprofen 2021-0 Yes [id number] 600mg Take 1 Univers 600 mg 7-18 tablet by ity of tablet 00:00: mouth [place] 00 every 6 Medical (six) Branch hours as needed (Pain). Take with food or milk. Yes [id number] 1{tbl} Take 1 Univers [id number] 7-18 tablet by ity of fum-folic 00:00: mouth [place] () 00 the Medical 27 mg iron- morning. Bran ch 1 mg folic tablet docusate Yes [id number] 200mg Take 2 U nivers 100 mg 7-18 capsules ity of capsule 00:00: by mouth [place] 00 once daily Medical as needed Branch for Constipati on. ferrous Yes [id number] 325mg Take 1 Un akhil sulfate 325 7-18 tablet by ity of mg (65 mg 00:00: mouth [place] iron) 00 the Medical tablet morning Branch and 1 tablet in the evening. ibuprofen Yes [id number] 600mg Take 1 Univers 600 mg 7-18 tablet by ity of tablet 00:00: mouth [place] 00 every 6 Medical (six) Branch hours as needed (Pain). Take with food or milk. Yes [id number] 1{tbl} Take 1 Univers [id number] 7-18 tablet by ity of fum-folic 00:00: mouth [place] () 00 the Medical 27 mg iron- morning. Bran ch 1 mg folic tablet docusate Yes [id number] 200mg Take 2 U nivers 100 mg 7-18 capsules ity of capsule 00:00: by mouth [place] 00 once daily Medical as needed Branch for Constipati on. ferrous Yes [id number] 325mg Take 1 Un akhil sulfate 325 7-18 tablet by ity of mg (65 mg 00:00: mouth [place] iron) 00 the Medical tablet morning Branch and 1 tablet in the evening. ibuprofen 0 Yes [id number] 600mg Take 1 Univers 600 mg 7-18 tablet by ity of tablet 00:00: mouth [place] 00 every 6 Medical (six) Branch hours as needed (Pain). Take with food or milk. 0 Yes [id number] 1{tbl} Take 1 Univers [id number] 7-18 tablet by ity of fum-folic 00:00: mouth [place] () 00 the Medical 27 mg iron- morning. Bran ch 1 mg folic tablet docusate Yes [id number] 200mg Take 2 U nivers 100 mg 7-18 capsules ity of capsule 00:00: by mouth [place] 00 once daily Medical as needed Branch for Constipati on. ferrous 0 Yes [id number] 325mg Take 1 Un akhil sulfate 325 7-18 tablet by ity of mg (65 mg 00:00: mouth [place] iron) 00 the Medical tablet morning Branch and 1 tablet in the evening. ibuprofen 0 Yes [id number] 600mg Take 1 Univers 600 mg 7-18 tablet by ity of tablet 00:00: mouth [place] 00 every 6 Medical (six) Branch hours as needed (Pain). Take with food or milk. Yes [id number] 1{tbl} Take 1 Univers [id number] 7-18 tablet by ity of fum-folic 00:00: mouth [place] () 00 the Medical 27 mg iron- morning. Bran ch 1 mg folic tablet docusate Yes [id number] 200mg Take 2 U nivers 100 mg 7-18 capsules ity of capsule 00:00: by mouth [place] 00 once daily Medical as needed Branch for Constipati on. ferrous Yes [id number] 325mg Take 1 Un akhil sulfate 325 7-18 tablet by ity of mg (65 mg 00:00: mouth [place] iron) 00 the Medical tablet morning Branch and 1 tablet in the evening. ibuprofen 0 Yes [id number] 600mg Take 1 Univers 600 mg 7-18 tablet by ity of tablet 00:00: mouth [place] 00 every 6 Medical (six) Branch hours as needed (Pain). Take with food or milk. 0 Yes [id number] 1{tbl} Take 1 Univers [id number] 7-18 tablet by ity of fum-folic 00:00: mouth [place] () 00 the Medical 27 mg iron- morning. Bran ch 1 mg folic tablet docusate 0 Yes [id number] 200mg Take 2 U nivers 100 mg 7-18 capsules ity of capsule 00:00: by mouth [place] 00 once daily Medical as needed Branch for Constipati on. ferrous 2021-0 Yes [id number] 325mg Take 1 Un akhil sulfate 325 7-18 tablet by ity of mg (65 mg 00:00: mouth [place] iron) 00 the Medical tablet morning Branch and 1 tablet in the evening. ibuprofen 2021-0 Yes [id number] 600mg Take 1 Univers 600 mg 7-18 tablet by ity of tablet 00:00: mouth [place] 00 every 6 Medical (six) Branch hours as needed (Pain). Take with food or milk. ascorbic Yes [id number] 500mg Take 1 U nivers acid, 7-08 tablet by ity of vitamin C, 00:00: mouth 3 [place] 500 mg 00 (three) Medical tablet times Branch daily. ascorbic Yes [id number] 500mg Take 1 U nivers acid, 7-08 tablet by ity of vitamin C, 00:00: mouth 3 [place] 500 mg 00 (three) Medical tablet times Branch daily. ascorbic Yes [id number] 500mg Take 1 U nivers acid, 7-08 tablet by ity of vitamin C, 00:00: mouth 3 [place] 500 mg 00 (three) Medical tablet times Branch daily. ascorbic Yes [id number] 500mg Take 1 U nivers acid, 7-08 tablet by ity of vitamin C, 00:00: mouth 3 [place] 500 mg 00 (three) Medical tablet times Branch daily. ascorbic Yes [id number] 500mg Take 1 U nivers acid, 7-08 tablet by ity of vitamin C, 00:00: mouth 3 [place] 500 mg 00 (three) Medical tablet times Branch daily. ascorbic Yes [id number] 500mg Take 1 U nivers acid, 7-08 tablet by ity of vitamin C, 00:00: mouth 3 [place] 500 mg 00 (three) Medical tablet times Branch daily. ascorbic Yes [id number] 500mg Take 1 U nivers acid, 7-08 tablet by ity of vitamin C, 00:00: mouth 3 [place] 500 mg 00 (three) Medical tablet times Branch daily. ascorbic Yes [id number] 500mg Take 1 U nivers acid, 7-08 tablet by ity of vitamin C, 00:00: mouth 3 [place] 500 mg 00 (three) Medical tablet times Branch daily. ascorbic Yes [id number] 500mg Take 1 U nivers acid, 5-06 tablet by ity of vitamin C, 00:00: mouth 3 [place] 500 mg 00 (three) Medical tablet times Branch daily. ferrous 2021-0 Yes [id number] 325mg Take 1 Un akhil sulfate 325 5-06 tablet by ity of mg (65 mg 00:00: mouth 2 [place] iron) 00 (two) Medical tablet times Branch daily. ascorbic Yes [id number] 500mg Take 1 U nivers acid, 5-06 tablet by ity of vitamin C, 00:00: mouth 3 [place] 500 mg 00 (three) Medical tablet times Branch daily. ferrous Yes [id number] 325mg Take 1 Un akhil sulfate 325 5-06 tablet by ity of mg (65 mg 00:00: mouth 2 [place] iron) 00 (two) Medical tablet times Branch daily. ascorbic Yes [id number] 500mg Take 1 U nivers acid, 5-06 tablet by ity of vitamin C, 00:00: mouth 3 [place] 500 mg 00 (three) Medical tablet times Branch daily. ferrous Yes [id number] 325mg Take 1 Un akhil sulfate 325 5-06 tablet by ity of mg (65 mg 00:00: mouth 2 [place] iron) 00 (two) Medical tablet times Branch daily. ascorbic Yes [id number] 500mg Take 1 U nivers acid, 5-06 tablet by ity of vitamin C, 00:00: mouth 3 [place] 500 mg 00 (three) Medical tablet times Branch daily. ferrous Yes [id number] 325mg Take 1 Un akhil sulfate 325 5-06 tablet by ity of mg (65 mg 00:00: mouth 2 [place] iron) 00 (two) Medical tablet times Branch daily. ascorbic 0 Yes [id number] 500mg Take 1 U nivers acid, 5-06 tablet by ity of vitamin C, 00:00: mouth 3 [place] 500 mg 00 (three) Medical tablet times Branch daily. ferrous 2021-0 Yes [id number] 325mg Take 1 Un akhil sulfate 325 5-06 tablet by ity of mg (65 mg 00:00: mouth 2 [place] iron) 00 (two) Medical tablet times Branch daily. ascorbic 2021-0 Yes [id number] 500mg Take 1 U nivers acid, 5-06 tablet by ity of vitamin C, 00:00: mouth 3 [place] 500 mg 00 (three) Medical tablet times Branch daily. ferrous Yes [id number] 325mg Take 1 Un akhil sulfate 325 5-06 tablet by ity of mg (65 mg 00:00: mouth 2 [place] iron) 00 (two) Medical tablet times Branch daily. ascorbic Yes [id number] 500mg Take 1 U nivers acid, 5-06 tablet by ity of vitamin C, 00:00: mouth 3 [place] 500 mg 00 (three) Medical tablet times Branch daily. ferrous Yes [id number] 325mg Take 1 Un akhil sulfate 325 5-06 tablet by ity of mg (65 mg 00:00: mouth 2 [place] iron) 00 (two) Medical tablet times Branch daily. ascorbic Yes [id number] 500mg Take 1 U nivers acid, 5-06 tablet by ity of vitamin C, 00:00: mouth 3 [place] 500 mg 00 (three) Medical tablet times Branch daily. ferrous Yes [id number] 325mg Take 1 Un akhil sulfate 325 5-06 tablet by ity of mg (65 mg 00:00: mouth 2 [place] iron) 00 (two) Medical tablet times Branch daily. Vital Signs Vital Name Observation Time Observation Value Comments Source Heart rate 2022-12-02 19:11:00 95 /min Libia riley - External Body temperature 2022-12-02 19:11:00 37.06 Anastasia Latoya Mcintosh - External Respiratory rate 2022-12-02 19:11:00 18 /min Latoya Mcintosh - External Body height 2022-12-02 19:11:00 165.1 cm Libia riley - External Body weight 2022-12-02 19:11:00 111.131 kg Libia riley - External BMI 2022-12-02 19:11:00 40.77 kg/m2 Libia riley - External Oxygen saturation in 2022-12-02 19:11:00 99 /min Libia Mcintosh - Arterial blood by External Pulse oximetry Systolic blood 2022-12-02 19:11:00 124 mm[Hg] Libia Mcintosh - pressure External Diastolic blood 2022-12-02 19:11:00 80 mm[Hg] Maryuri Mcintosh - pressure External Systolic blood 2022-07-29 20:56:00 126 mm[Hg] Univer sity of pressure [facility] Diastolic blood 2022-07-29 20:56:00 76 mm[Hg] Unive rsity of [facility] Heart rate 2022-07-29 20:56:00 80 /min [facility] Body temperature 2022-07-29 20:56:00 36.33 Anastasia [facility] 2022-07-29 20:56:00 18 /min [facility] Body height 2022-07-29 20:56:00 160 cm [facility] Body weight 2022-07-29 20:56:00 108.495 kg [facility] BMI 2022-07-29 20:56:00 42.37 kg/m2 [facility] Procedures Procedure Date / Time Performing Clinician Source Performed CBC WITH DIFF 2022-07-29 21:50:00 Alisa Young [facility] GLYCOSYLATED HEMOGLOBIN 2022-07-29 21:50:00 Alisa Young [facility] ([facility] POCT TEST 2022-07-29 20:58:00 Alisa Young [facility] EXTERNAL PAP SMEAR 2019-10-19 19:26:00 Doctor Unassigned, No Uni versity of [facility] Encounters Start End Encounter Admission Attending Care Care Encounter Source Date/Time Date/Time Type Type Clinicians Facility Department ID 2022-02-05 Outpatient P [facility] VALERIY [id number] Univers 23:12:[address] [facility] 2023-04-05 2023-04-05 Case WESLEY Blackburn [id number] Univers 00:00:00 00:00:00 Management Christen JEFFERSON 350.1.13.10 ity of [place].686 [place] [id number] [address] 2022-12-02 2022-12-02 Outpatient LIBIA VERA [id number] Libia 13:45:00 13:45:00 LUKE lalito rich 2022-07-29 2022-07-29 Outpatient R HECTOR [facility] [id number] Univers 14:30:00 15:49:52 ALISA barb goodson [facility] 2022-07-29 2022-07-29 [facility] [id number] Univers 14:30:00 15:49:52 Visit Alisa Abrams CENTRAL OFFICE EQUIPMENT INSTALLER 350.1.13.10 ity of REGIONAL 4.2.7.2.686 [place] MATERNAL [id number] Med ical & CHILD [address] [place] [address] 2022-07-24 2022-07-24 [facility] [id number] Univers 00:00:00 00:00:00 Marimar Sauceda CENTRAL OFFICE EQUIPMENT INSTALLER 350.1.13.10 ity of [facility] 4.2.7.2.686 [place] MATERNAL [id number] Med ical & CHILD [address] [place] [address] 2022-07-08 2022-07-08 Outpatient R REJI, [facility] [id number] Univers 09:15:00 09:15:00 MARIMAR goodson [facility] [place] 2022-06-30 2022-06-30 Outpatient R REJI, [facility] [id number] Univers 00:00:00 00:00:[address] [facility] 2022-06-29 2022-06-29 [facility] [id number] Univers 00:00:00 00:00:00 Marimar Sohail CENTRAL OFFICE EQUIPMENT INSTALLER 350.1.13.10 ity of [facility] 4.2.7.2.686 [place] MATERNAL [id number] [facility] ical & CHILD [address] [place] [address] 2022-05-30 2022-05-30 [facility] [id number] Univers 00:00:00 00:00:00 Marimar C CENTRAL OFFICE EQUIPMENT INSTALLER 350.1.13.10 ity of [facility] 4.2.7.2.686 [place] MATERNAL [id number] Med ical & CHILD [address] [place] [address] 2022-04-27 2022-04-27 Refill [facility] [id number] Univers 00:00:00 00:00:00 Marimar C CENTRAL OFFICE EQUIPMENT INSTALLER 350.1.13.10 ity of REGIONAL 4.2.7.2.686 [place] MATERNAL [id number] [facility] & CHILD [address] [place] [address] 2022-04-10 2022-04-10 [facility]phone [facility] [id number] [id number] Univers 00:00:00 00:00:00 Marimar C CENTRAL OFFICE EQUIPMENT INSTALLER 350.1.13.10 ity of REGIONAL 4.2.7.2.686 [place] MATERNAL [id number] [facility] & CHILD [address] [place] [address] 2022-04-07 2022-04-07 Office [facility] [id number] Univers 13:00:00 13:56:18 Visit Marimar C CENTRAL OFFICE EQUIPMENT INSTALLER 350.1.13.10 ity of REGIONAL 4.2.7.2.686 [place] MATERNAL [id number] [facility] & CHILD [address] [place] [address] 2022-04-07 2022-04-07 Outpatient R AKINSIPE, [facility] [id number] Univers 13:00:00 13:56:18 MARIMAR ity o [facility] [place] 2022-04-07 2022-04-07 Outpatient R AKINSIPE, [facility] [id number] Univers 13:00:00 13:56:18 MARIMAR ity o f [facility] 2022-04-07 2022-04-07 Outpatient R AKINSIPE, [facility] [id number] Univers 13:00:00 13:00:00 MARIMAR ity o [facility] [place] 2022-04-06 2022-04-06 Outpatient R AKINSIPE, [facility] [id number] Univers 08:15:00 08:15:00 MARIMAR ity o f [facility] 2022-04-01 2022-04-01 Telephone [facility] [id number] [id number] Univers 00:00:00 00:00:00 Marimar C CENTRAL OFFICE EQUIPMENT INSTALLER 350.1.13.10 ity of REGIONAL 4.2.7.2.686 [place] MATERNAL [id number] [address] 2022-03-30 2022-03-30 Orders Doctor LAMBERTO 1.2.840.114 [id number] Univers 00:00:00 00:00:00 Only Unassigned, JENNIFER 350.1.13.10 ity of [facility] 4.2.7.2.686 [place] as [id number] [address] 2022-03-30 2022-03-30 Telephone [facility] 1.2.840.114 [id number] Univers 00:00:00 00:00:00 Marimar Sauceda CENTRAL OFFICE EQUIPMENT INSTALLER 350.1.13.10 ity of REGIONAL 4.2.7.2.686 [place] MATERNAL [id number] [address] 2022-03-16 2022-03-16 Outpatient R [facility] [id number] Univers 12:45:00 13:48:14 MARIMAR [place] o f [facility] 2022-03-16 2022-03-16 Routine Marimar Mendoza [facility] [id number] Univers 12:45:00 13:48:14 Jace Darnell R CENTRAL OFFICE EQUIPMENT INSTALLER 350.1.13.1 0 ity of Visit REGIONAL 4.2.7.2.686 [place] MATERNAL [id number] [address] 2022-03-13 2022-03-13 Orders Doctor LAMBERTO 1.2.840.114 [id number] Univers 00:00:00 00:00:00 Only Unassigned, JENNIFER 350.1.13.10 ity of [facility] 4.2.7.2.686 Pascual as [phone] [address] 2022-02-26 2022-02-26 Outpatient R [facility] [id number] Univers 10:00:00 10:00:[address] [facility] 2022-02-19 2022-02-23 Inpatient P JULIAN [facility] VALERIY [id number] Univers 22:02:00 14:42:[address] [facility] 2022-02-19 2022-02-23 [facility] LAMBERTO Wallace 1.2.840.114 [id number] Univers 22:02:00 14:42:00 Encounter Brad FARNSWORTHY 350.1.13.10 [facility] 4.2.7.2.686 [place] as [phone] [facility] [address] 2022-02-21 2022-02-21 Anesthesia LAMBERTO Rhoades 1.2.840.114 [id number] Univers 20:03:47 20:03:47 Event Dayanara RODRIGUEZ 350.1.13.10 [facility] 4.2.7.2.686 [place] [phone] [address] 2022-02-20 2022-02-21 Anesthesia Dayanara Rhoades 1.2.8 40.114 [id number] Univers 14:52:00 05:15:00 Event Lasha Cosby 350.1. 13.10 [facility] 4.2.7.2.686 [place] [phone] [address] 2022-02-20 2022-02-20 Telephone [facility] 1.2.840.114 [id number] Univers 00:00:00 00:00:00 Marimar Sauceda CENTRAL OFFICE EQUIPMENT INSTALLER 350.1.13.10 ity [facility] 4.2.7.2.686 Pascual as MATERNAL [phone] [facility] ical & CHILD [address] [place] [address] 2022-02-19 2022-02-19 Inpatient P JULIAN [facility] VALER[facility]Y [id number] Univers 22:02:00 22:02:00 BRAD ity [facility] 2022-02-19 2022-02-19 Outpatient [facility] [id number] Univers 08:45:00 09:24:36 MARIM[address] day o f [facility] 2022-02-19 2022-02-19 Routine [facility] 1.2.567.651 [id number] Univers 08:45:00 09:24:36 Marimar C CENTRAL OFFICE EQUIPMENT INSTALLER 350.1.13.10 ity of Visit REGIONAL 4.2.7.2.686 [place] as MATERNAL [phone] [facility] & CHILD [address] [place] [address] 2022-02-19 2022-02-19 Outpatient R AKINSI, [facility] [id number] [facility] 08:45:00 08:45:00 MARIMAR itngozi o [facility] 2022-02-19 2022-02-19 Orders Doctor LAMBERTO 1.2.840.114 [id number] Univers 00:00:00 00:00:00 Only Unassigned, JENNIFER 350.1.13.10 ity of [facility] 4.2.7.2.686 Pascual as [phone] [address] 2022-02-17 2022-02-17 Outpatient R AKINSIPE, [facility] [id number] [facility] 13:15:00 13:15:00 MARIMAR day o [facility] 2022-02-13 2022-02-13 Telephone [facility] 1.2.840.114 [id number] Univers 00:00:00 00:00:00 Marimar C CENTRAL OFFICE EQUIPMENT INSTALLER 350.1.13.10 ity of REGIONAL 4.2.7.2.686 [place] as MATERNAL [phone] [facility] & [address] 2022-02-12 2022-02-12 Routine [facility] 1.2.187.879 [id number] Univers 10:30:00 11:33:30 Marimar C CENTRAL OFFICE EQUIPMENT INSTALLER 350.1.13.10 ity of Visit [facility] 4.2.7.2.686 Pascual as MATERNAL [phone] [facility] & [address] 2022-02-12 2022-02-12 Outpatient R AKINSIPE, [facility] [id number] Univers 10:30:00 11:33:30 MARIMAR day o f [facility] 2022-02-12 2022-02-12 Outpatient R AKINSIPE, [facility] [id number] Univers 10:30:00 11:33:30 MARIMAR valley o f [facility] 2022-02-12 2022-02-12 Outpatient R AKINSIPE, [facility] [id number] Univers 10:30:00 10:30:00 MARIMAR ity o f [facility] 2022-02-12 2022-02-12 Outpatient R AKINSIPE, [facility] [id number] Univers 10:30:00 10:30:00 MARIMAR ity o f [facility] 2022-02-05 2022-02-05 Outpatient P SOLITARIO [facility] VALERIY [id number] Univers 20:42:00 23:12:[address] [facility] 2022-02-05 2022-02-05 [facility] LAMBERTO Jerez 1.2.840.114 [id number] Univers 20:42:00 23:12:00 Encounter Monica JENNIFER 350.1.13.10 ity [facility] 4.2.7.2.686 [place] [phone] [address] 2022-02-04 2022-02-04 Outpatient R AKINSIPE, [facility] [id number] Univers 09:45:00 10:27:15 MARIMAR ity o f [facility] 2022-02-04 2022-02-04 Routine Akinpe, [facility] 1.2.551.857 [id number] Univers 09:45:00 10:27:15 Marimar C CENTRAL OFFICE EQUIPMENT INSTALLER 350.1.13.10 ity of Visit REGIONAL 4.2.7.2.686 [place]asc[place] as MATERNAL [phone] [facility] ical & CHILD [address] [place] [address] 2022-02-04 2022-02-04 Telephone [facility] 1.2.840.114 [id number] Univers 00:00:00 00:00:00 Marimar C CENTRAL OFFICE EQUIPMENT INSTALLER 350.1.13.10 ity of REGIONAL 4.2.7.2.686 [place]asc[place] as MATERNAL [id number] [facility] & CHILD [address] [place] [address] 2022-02-04 2022-02-04 Telephone Akinsipe, [facility] 1.2.840.114 [id number] Univers 00:00:00 00:00:00 Marimar C CENTRAL OFFICE EQUIPMENT INSTALLER 350.1.13.10 ity of [facility] 4.2.7.2.686 Pascual as MATERNAL [phone] [facility] & CHILD [address] [place] [address] 2022-01-21 2022-01-21 Outpatient R REJI [facility] [id number] [facility] 10:30:00 10:33:50 MARIM[address] ity o f [facility] 2022-01-21 2022-01-21 Routine [facility] 1.2.838.103 [id number] Univers 10:30:00 10:33:50 Marimar C CENTRAL OFFICE EQUIPMENT INSTALLER 350.1.13.10 ity of Visit [facility] 4.2.7.2.686 Pascual as MATERNAL [phone] [facility] & CHILD [address] [place] [address] 2022-01-21 2022-01-21 Orders Doctor LAMBERTO 1.2.840.114 [id number] Univers 00:00:00 00:00:00 Only Unassigned, JENNIFER 350.1.13.10 ity of [facility] 4.2.7.2.686 Pascual as [phone] [address] 2022-01-19 2022-01-19 Telephone [facility] 1.2.840.114 [id number] Univers 00:00:00 00:00:00 Marimar C CENTRAL OFFICE EQUIPMENT INSTALLER 350.1.13.10 ity of [facility] 4.2.7.2.686 Pascual as MATERNAL [phone] [facility] & CHILD [address] [place] [address] 2022-01-13 2022-01-13 Telephone [facility] 1.2.840.114 [id number] Univers 00:00:00 00:00:00 Marimar C CENTRAL OFFICE EQUIPMENT INSTALLER 350.1.13.10 ity of [facility] 4.2.7.2.686 Pascual as MATERNAL [id number] [facility] & CHILD [address] [place] [address] 2022-01-13 2022-01-13 Telephone [facility] 1.2.840.114 [id number] Univers 00:00:00 00:00:00 Marimar C CENTRAL OFFICE EQUIPMENT INSTALLER 350.1.13.10 ity of REGIONAL 4.2.7.2.686 Pascual as MATERNAL [id number] [facility] & CHILD [address] [place] [address] 2022-01-08 2022-01-08 Outpatient Kurtis DARNELL [facility] [id number] Univers 08:45:00 09:37:09 RUIZNDA ity o [address] [facility] 2022-01-08 2022-01-08 Routine Marimar Mendoza [facility] 1.2.8 40.114 [id number] Univers 08:45:00 09:37:09 Ruiz Darnellhailekendell R CENTRAL OFFICE EQUIPMENT INSTALLER 350.1.13.1 0 ity of Visit REGIONAL 4.2.7.2.686 Pascual as MATERNAL [phone] [facility] & [address] 2021-12-30 2021-12-30 Outpatient Kurtis DARNELL [facility] [id number] Univers 07:45:00 07:45:00 JACE valley o [facility] 2021-12-25 2021-12-25 Outpatient [facility] [id number] Univers 09:45:00 09:45:00 MARIMAR valley o [facility] 2021-12-12 2021-12-12 [facility] 1.2.840.114 [id number] Univers 00:00:00 00:00:00 Marimar Sauceda CENTRAL OFFICE EQUIPMENT INSTALLER 350.1.13.10 ity of REGIONAL 4.2.7.2.686 Pascual as MATERNAL [id number] [facility] & CHILD [address] [place] [address] 2021-12-11 2021-12-11 Outpatient [facility] [id number] Univers 09:45:00 10:50:41 MARIMAR day o [facility] 2021-12-11 2021-12-11 [facility] 1.2.033.527 [id number] Univers 09:45:00 10:50:41 Marimar Sauceda CENTRAL OFFICE EQUIPMENT INSTALLER 350.1.13.10 ity of Visit REGIONAL 4.2.7.2.686 Pascual as MATERNAL [phone] [facility] & CHILD [address] [place] [address] 2021-12-11 2021-12-11 Outpatient R AKINSIPE, [facility] [id number] Univers 09:45:00 10:50:[address] [facility] 2021-12-11 2021-12-11 Outpatient R AKINSIPE, [facility] [id number] Univers 09:45:00 09:45:00 MARIMAR day o [facility] 2021-11-13 2021-11-13 Outpatient R AKINSIPE, [facility] [id number] Univers 10:45:00 11:53:52 MARIMAR day o [facility] [facility] 2021-11-13 2021-11-13 Routine [facility], [facility] 1.2.575.644 [id number] Univers 10:45:00 11:53:52 Marimar C CENTRAL OFFICE EQUIPMENT INSTALLER 350.1.13.10 ity of Visit REGIONAL 4.2.7.2.686 Pascual as MATERNAL [phone] Med ical & CHILD [address] [place] [address] 2021-11-13 2021-11-13 Outpatient R AKINSIPE, [facility] [id number] Univers 10:45:00 11:53:[address] [facility] 2021-10-22 2021-10-22 [facility] 1.2.840.114 [id number] Univers 00:00:00 00:00:00 Marimar C CENTRAL OFFICE EQUIPMENT INSTALLER 350.1.13.10 ity of REGIONAL 4.2.7.2.686 Pascual as MATERNAL [phone] [facility] ical & CHILD [address] [place] [address] 2021-10-20 2021-10-20 [facility]phone [facility] 1.2.840.114 [id number] Univers 00:00:00 00:00:00 Marimar C CENTRAL OFFICE EQUIPMENT INSTALLER 350.1.13.10 ity of REGIONAL 4.2.7.2.686 Pascual as MATERNAL [phone] [facility] ical & CHILD [address] [place] [address] 2021-10-17 2021-10-17 Income Tax Investigator 1, Reinier-Mendy Room [facility] 1.2. 840.114 [id number] Univers 08:00:00 09:15:00 Visit Monica Jerezedmundovalerie CENTRAL OFFICE EQUIPMENT INSTALLER 350.1. 13.10 ity of REGIONAL 4.2.7.2.686 [place] as MATERNAL [phone] Med ical & CHILD 369 [facility] 2021-10-17 2021-10-17 Outpatient P SOLITARIO, [facility] [id number] Univers 08:00:00 08:00:00 CHASEY ity [facility] 2021-10-17 2021-10-17 Outpatient P [facility] [id number] Univers 08:00:00 08:00:00 ity [facility] 2021-10-17 2021-10-17 Outpatient P [facility] [id number] Univers 08:00:00 08:00:00 ity [facility] 2021-10-16 2021-10-16 Outpatient R AKINSIPE, [facility] [id number] Univers 10:45:00 10:45:00 MARIMAR day o f [facility] 2021-10-16 2021-10-16 Routine Akinsipe, [facility] 1.2.254.402 [id number] Univers 10:45:00 10:45:00 Marimar Sauceda CENTRAL OFFICE EQUIPMENT INSTALLER 350.1.13.10 ity of Visit REGIONAL 4.2.7.2.686 Pascual as MATERNAL [phone] [facility] & CHILD [address] [place] [address] 2021-10-16 2021-10-16 Outpatient R AKINSIPE, [facility] [id number] Univers 10:45:00 10:34:15 MARIMAR valley o f [facility] 2021-09-23 2021-09-23 Telephone Akinsipe, [facility] 1.2.840.114 [id number] Univers 00:00:00 00:00:00 Marimar Sauceda CENTRAL OFFICE EQUIPMENT INSTALLER 350.1.13.10 ity of REGIONAL 4.2.7.2.686 [place] as MATERNAL [phone] [facility] ical & CHILD [address] [place] [address] 2021-09-23 2021-09-23 Telephone Akinsipe, [facility] 1.2.840.114 [id number] Univers 00:00:00 00:00:00 Marimar C CENTRAL OFFICE EQUIPMENT INSTALLER 350.1.13.10 ity of REGIONAL 4.2.7.2.686 [place]asc[place] as MATERNAL [phone] [facility] & [address] 2021-09-18 2021-09-18 Outpatient R AKINSIPE, [facility] [id number] Univers 11:00:00 11:13:03 MARIMAR ity o f [facility] 2021-09-18 2021-09-18 [facility] 1.2.899.830 [id number] Univers 11:00:00 11:13:03 Marimar C CENTRAL OFFICE EQUIPMENT INSTALLER 350.1.13.10 ity of Visit REGIONAL 4.2.7.2.686 P[place] as MATERNAL [phone] [address] 2021-09-18 2021-09-18 Outpatient R AKINSIPE, [facility] [id number] Univers 11:00:00 11:13:03 MARIMAR ity o f [facility] 2021-09-18 2021-09-18 Outpatient R AKINSIPE, [facility] [id number] Univers 11:00:00 11:00:00 MARIMAR ity o f [facility] 2021-09-02 2021-09-02 Outpatient R VENECIA [facility] [id number] Univers 13:45:00 13:45:00 VÍCTOR it y of S, GERARDO [facility] 2021-09-02 2021-09-02 Income Tax Investigator Lab, [facility] 1.2.840. 114 [id number] Univers 13:45:00 13:45:00 Visit Cuadra Gerardo Ramos CENTRAL OFFICE EQUIPMENT INSTALLER 350.1. 13.10 ity of REGIONAL 4.2.7.2.686 Pascual as MATERNAL [phone] [facility] & CHILD [address] [place] [address] 2021-09-02 2021-09-02 Income Tax Investigator [facility] 1.2. 840.114 [id number] Univers 13:00:00 13:45:00 Visit Cuadra RichardGerardo CENTRAL OFFICE EQUIPMENT INSTALLER 350.1. 13.10 ity of REGIONAL 4.2.7.2.686 Pascual as MATERNAL [phone] Med ical & CHILD 369 [facility] 2021-09-02 2021-09-02 Outpatient P CUADRA [facility] [id number] Univers 13:00:00 13:00:00 VÍCTOR it y of S CARRILLO [facility] 2021-09-02 2021-09-02 Abstract Reji [facility] 1.2.840.114 [id number] Univers 00:00:00 00:00:00 Marimar Sauceda CENTRAL OFFICE EQUIPMENT INSTALLER 350.1.13.10 ity of [facility] 4.2.7.2.686 Pascual as MATERNAL [phone] Med ical & CHILD [address] [place] [address] 2021-08-25 2021-08-25 Emergency [facility] [id number] Univers 10:43:00 14:29:00 NIESHA [facility] 2021-08-25 2021-08-25 Emergency [facility] [id number] Univers 10:43:00 14:29:00 [facility] 2021-08-25 2021-08-25 Emergency [facility] 1.2.494.091 [id number] Univers 10:43:00 14:29:00 Niesha [place] 350.1.13.10 i ty [facility] 4.2.7.2.[place] [phone] [facility] [address] 2021-08-25 2021-08-25 Orders Doctor LAMBERTO 1.2.840.114 [id number] Univers 00:00:00 00:00:00 Only Unassigned, JENNIFER 350.1.13.10 ity of [facility] 4.2.7.2.686 Pascual as [phone] [facility] [address] 2021-08-21 2021-08-21 Outpatient R REJI [facility] [id number] Univers 10:30:00 11:03:[address] [facility] 2021-08-21 2021-08-21 Routine Reji [facility] 1.2.355.745 [id number] Univers 10:30:00 11:03:29 Marimar C CENTRAL OFFICE EQUIPMENT INSTALLER 350.1.13.10 ity of Visit REGIONAL 4.2.7.2.686 [place]asc[place] as MATERNAL [phone] [facility] & [address] 2021-08-21 2021-08-21 Outpatient R AKINSIPE, [facility] [id number] Univers 10:30:00 10:30:00 MARIMAR ity o f [facility] 2021-08-21 2021-08-21 [facility] [id number] Univers 10:30:00 10:30:00 MARIMAR ity o [facility] 2021-08-12 2021-08-12 Telephone [facility] 1.2.840.114 [id number] Univers 00:00:00 00:00:00 Marimar C CENTRAL OFFICE EQUIPMENT INSTALLER 350.1.13.10 ity of REGIONAL 4.2.7.2.686 Pascual as MATERNAL [id number] [address] 2021-07-31 2021-07-31 [facility] [id number] Univers 13:30:00 13:30:00 MARIMAR ity o [facility] 2021-07-31 2021-07-31 Outpatient R [facility] [id number] Univers 10:30:00 10:30:[address] [facility] 2021-07-28 2021-07-28 Telephone [facility] 1.2.840.114 [id number] Univers 00:00:00 00:00:00 Marimar C CENTRAL OFFICE EQUIPMENT INSTALLER 350.1.13.10 ity of REGIONAL 4.2.7.2.686 Pascual as MATERNAL [id number] [facility] & [address] 2021-07-24 2021-07-24 [facility] [id number] Univers 14:30:00 16:10:47 MARIMAR ity o f [facility] 2021-07-24 2021-07-24 Initial [facility] 1.2.437.124 [id number] Univers 14:30:00 16:10:47 Marimar C CENTRAL OFFICE EQUIPMENT INSTALLER 350.1.13.10 ity of Visit REGIONAL 4.2.7.2.686 Pascual as MATERNAL [phone] [facility] & [address] 2021-07-24 2021-07-24 Outpatient R REJI [facility] [id number] Univers 14:30:00 16:10:47 MARIM[address] ity o f [facility] 2021-07-24 2021-07-24 [facility] [id number] Univers 14:30:00 16:10:47 MARIMAR valley o [facility] 2021-07-24 2021-07-24 Telephone [facility] 1.2.840.114 [id number] Univers 00:00:00 00:00:00 Marimar Sauceda CENTRAL OFFICE EQUIPMENT INSTALLER 350.1.13.10 ity of REGIONAL 4.2.7.2.686 Pascual as MATERNAL [id number] [facility] & [address] 2021-07-24 2021-07-24 Orders Doctor LAMBERTO 1.2.840.114 [id number] Univers 00:00:00 00:00:00 Only Unassigned, JENNIFER 350.1.13.10 ity of [facility] 4.2.7.2.686 Pascual as [phone] [address] 2019-10-24 2019-10-24 [facility] [id number] Univers 15:30:00 15:30:00 SHWETA day [facility] Results Test Description Test Time Test Comments Results Result Comments Source POCT TEST 2022-07-29 20:59:00 Test Item Value Reference Range Interpretation Comme nts POCT PREG (test code = 1605) Negative On board controls acceptable with C Line (test code = 3574) Yes POCT PREG LOT # (test code = 3575) POCT PREG TEST DATE (test code = 3576[id number] 20:59:00 Test Item Value Reference Range Interpretation Comments POCT PREG (test code = 1605) Negative On board controls acceptable with C Yes Line (test code = 3574) POCT PREG LOT # (test code = 3575) POCT PREG TEST DATE (test code = 3576) [facility] [id number] 00:00:00 Test Item Value Reference Range Interpretation Comments External Pap Other Satisfactory fo r Smear (test evaluation. code = 61974-5) ?Endocervica l and/or squamous metaplastic JULISSA (test code Please see results in = JULISSA) Care Everywhere. LIQUID PAP W/HPV RFX ON ASC-U (10/19/2019 2:26 PM CDT)Lab Results - LIQUID PAP W/HPV RFX ON ASC-U (10/19/2019 2:26 PM CDT) DIAGNOSIS: Comment (A)Comment: EPITHELIAL CELL ABNORMALITY.LOW-GRADE SQUAMOUS INTRAEPITHELIAL LESION (LSIL); (ENCOMPASSING HUMANPAPILLOMAVIRUS/WA LD DYSPLASIA/CIN1). ? [facility] ?SPECIMEN ADEQUACY: Comment: Satisfactory for evaluation. ?Endocervical and/or squamous metaplasticcells (endocervical component) are present. [facility]
[2023-07-03 18:08] LABS: SARS-COV-2 RT PCR NEGATIVE (NEGATIVE)
--- NOTE | 2023-07-03 18:14 | EDPHYS ---
Physician Documentation [facility] Name: Leslye Reardon Age: 27 yrs Sex: Female : 1995 Arrival Date: 07/03/2023 Time: 16:58 Bed IW2 Private MD: ED Physician Manuel Samano HPI: 07/03 18:40 This 27 yrs old Black Female presents to ER via Ambulatory with complaints of Flu kb Symptoms. 18:40 Patient is a 27-year-old female with no medical history who presents for cough, kb congestion, fever and body aches that started 3 days ago.. Historical: - Allergies: 17:16 PENICILLINS; ko1 - Home Meds: 17:16 None [Active]; ko1 - PMHx: 17:16 None; ko1 - PSHx: 17:16 None; ko1 - Immunization history:: Adult Immunizations up to date. - Social history:: Smoking status: Patient denies any tobacco usage or history of. ROS: 18:40 Abdomen/GI: Negative for abdominal pain, nausea, vomiting, diarrhea, and constipation, kb 18:40 Constitutional: Positive for body aches, chills, fatigue, fever, malaise, 18:40 ENT: Positive for rhinorrhea, sinus congestion, 18:40 Respiratory: Positive for cough, 18:40 All other systems are negative, Exam: 18:40 Constitutional: This is a well developed, well nourished patient who is awake, alert, kb and in no acute distress. Head/Face: Normocephalic, atraumatic. ENT: Moist Mucous membranes Cardiovascular: Regular rate Respiratory: Respirations even and unlabored. No increased work of breathing. Talking in full sentences Abdomen/GI: Soft, non-tender. No distention Skin: Warm, dry with normal turgor. Normal color. MS/ Extremity: Pulses equal, no cyanosis. Neurovascular intact. Full, normal range of motion. Neuro: Awake and alert, GCS 15, oriented to person, place, time, and situation. Moves all extremities. Normal gait. Vital Signs: 17:12 BP 125 / 79; Pulse 96; Resp 18; Temp 97; Pulse Ox 98% ; ko1 MDM: 17:10 Patient medically screened. kb 18:41 Differential Diagnosis: Influenza Upper Respiratory Infection Sinusitis Other COVID. kb Data reviewed: vital signs, nurses notes. Counseling: I had a detailed discussion with the patient and/or guardian regarding the historical points, exam findings, and any diagnostic results supporting the discharge/admit diagnosis, lab results, the need for outpatient follow up, a family practitioner, to return to the emergency department if symptoms worsen or persist or if there are any questions or concerns that arise at home. 07/03 17:14 Order name: COVID-19/FLU A+B; Complete Time: 18:13 kb Administered Medications: No medications were administered Disposition Summary: 07/03/23 18:14 Discharge Ordered Notes: Location: Home kb Condition: Stable kb Diagnosis - Influenza due to identified novel influenza A virus - B kb Followup: kb - With: Emergency Department - When: As needed - Reason: Worsening of condition Followup: kb - With: Private Physician - When: 2 - 3 days - Reason: Recheck today's complaints, Continuance of care, Re-evaluation by your physician Discharge Instructions: - Discharge Summary Sheet kb - Influenza, Adult, [id number] kb Forms: - Medication Reconciliation Form kb - Thank You Letter kb - Antibiotic Education kb - Prescription Opioid Use kb - Patient Portal Instructions kb - Leadership Thank You Letter kb Signatures: Dispatcher [employer] Adwoa Spencer, SKI PATROL-C SKI PATROL-Laxmi Moraes, RN RN ko1
--- NOTE | 2023-07-03 18:14 | ER ---
Nurse's Notes [facility] Name: Leslye Reardon Age: 27 yrs Sex: Female : 1995 Arrival Date: 07/03/2023 Time: 16:58 Bed IW2 Private MD: Diagnosis: Influenza due to identified novel influenza A virus-B Presentation: 07/03 17:12 Chief complaint: Patient states: body aches, fever, cough, congestion for 3 days. ko1 Coronavirus screen: chills, congestion, cough unrelated to allergies, fever, muscle pain, runny nose, Client presents with at least one sign or symptom that may indicate coronavirus-19. Standard/surgical mask placed on the client. Ebola Screen: No symptoms or risks identified at this time. Initial Sepsis Screen: Does the patient meet any 2 criteria? No. Patient's initial sepsis screen is negative. Does the patient have a suspected source of infection? No. Patient's initial sepsis screen is negative. Risk Assessment: Do you want to hurt yourself or someone else? Patient reports no desire to harm self or others. Onset of symptoms. 17:12 Method Of Arrival: Ambulatory ko1 17:12 Acuity: ELO 4 ko1 Triage Assessment: 17:16 General: Appears ill, Behavior is calm, cooperative, appropriate for age. Pain: ko1 Complains of pain in generalized. Historical: - Allergies: 17:16 PENICILLINS; ko1 - Home Meds: 17:16 None [Active]; ko1 - PMHx: 17:16 None; ko1 - PSHx: 17:16 None; ko1 - Immunization history:: Adult Immunizations up to date. - Social history:: Smoking status: Patient denies any tobacco usage or history of. Screenin:28 [facility] ED Fall Risk Assessment (Adult) History of falling in the last 3 months, ko1 including since admission No falls in past 3 months (0 pts) Confusion or Disorientation No (0 pts) Intoxicated or Sedated No (0 pts) Impaired Gait No (0 pts) Mobility Assist Device Used No (0 pt) Altered Elimination No (0 pt) Score/Fall Risk Level 0 - 2 = Low Risk Oriented to surroundings, Maintained a safe environment, Educated pt \T\ family on fall prevention, incl call for assistance when getting out of bed, Assessed \T\ reinforced patient's understanding of fall precautions, Provided non-skid footwear, Hourly rounding (assess needs \T\ fall precautionary measures) done, Used ambulatory aids as needed (educated on \T\ assisted with). Abuse screen: Denies threats or abuse. Denies injuries from another. Nutritional screening: No deficits noted. Tuberculosis screening: No symptoms or risk factors identified. Assessment: 17:24 Reassessment: No changes from previously documented assessment. Patient and/or family ll1 updated on plan of care and expected duration. Pain level reassessed. Patient is alert, oriented x 3, equal unlabored respirations, skin warm/dry/pink. Vital Signs: 17:12 BP 125 / 79; Pulse 96; Resp 18; Temp 97; Pulse Ox 98% ; ko1 ED Course: 17:01 Patient arrived in ED. mg5 17:02 [facility] Fall [facility] kb 17:02 Manuel Samano MD is Attending Physician. kb 17:16 Triage completed. ko1 17:16 Arm band placed on right wrist. Patient placed in waiting room, Patient notified of ko1 wait time. 17:24 COVID-19/FLU A+B Sent. ll1 18:28 Laxmi House, RN is Primary Nurse. ko1 18:28 Patient has correct armband on for positive identification. Provided Education on: na. ko1 18:28 No provider procedures requiring assistance completed. Patient did not have IV access ko1 during this emergency room visit. Administered Medications: No medications were administered Medication: 18:28 VIS not applicable for this client. ko1 Outcome: 18:14 Discharge ordered by MD. kb 18:28 Discharged to home ambulatory, ko1 18:28 Condition: stable 18:28 Discharge instructions given to patient, Instructed on discharge instructions, follow up and referral plans. medication usage, Demonstrated understanding of instructions, follow-up care, medications, 18:30 Patient left the ED. ko1 Signatures: Adwoa Fall FNP-C FNP-Ckb Lewis, Lynsay RN RN 1 Laxmi House, NEY RN ko1 Brianna Romero mg5
[2023-07-03 18:35] VITALS: BP 125/79; TEMP 97; O2SAT 98
== END 2023-07-03 18:30 | disposition home or self-care (01) ==
LOC: ER 16:58
DX: J10.1 Influenza due to other identified influenza virus with other respiratory manifestations (principal); Z11.52 Encounter for screening for COVID-19; Z88.0 Allergy status to penicillin
CPT/HCPCS: 0240U; 99283